=== PATIENT | female | born 1985 | race Caucasian/White ===

== ENCOUNTER 2018-03-21 02:56 | Emergency (ER) | payer SELFPAY | END 2018-03-21 03:32 | disposition home or self-care (01) | LOC: SCSER 03:03 | DX: Z01.30 Encounter for examination of blood pressure without abnormal findings (principal); F17.210 Nicotine dependence, cigarettes, uncomplicated; F32.9 Major depressive disorder, single episode, unspecified | CPT/HCPCS: 99283 ==